=== PATIENT | female | born 1995 | race Hispanic/Latino ===

== ENCOUNTER 2017-03-27 09:33 | Observation (INO) | payer BC ==
[~2017-03-27] VITALS: Ht 162.6 cm; Wt 70.3 kg
[2017-03-27 09:55] LABS: BASOPHILS % (AUTO) 0.3 % (0.0-5.0); EOSINOPHILS % (AUTO) 0.1 % (0.0-8.0); HEMATOCRIT 41.4 % (36-48); LYMPHOCYTES % (AUTO) 17.1 % (21.0-51.0); MEAN CORPUSCULAR HEMOGLOBIN 27.9 pg (27.0-33.0); MEAN CORPUSCULAR HGB CONC 32.5 g/dL (32.0-36.0); MEAN CORPUSCULAR VOLUME 85.7 fL (79-99); MONOCYTES % (AUTO) 7.5 % (3.0-13.0); PLATELET COUNT (AUTO) 348 K/uL (130-400); RED BLOOD CELL COUNT(AUTO) 4.83 MIL/uL (4.00-5.50); RED CELL DISTRIBUTION WIDTH 16.1 % (11.0-15.5); WHITE BLOOD COUNT (AUTO) 12.8 K/uL (4.8-10.8)
[2017-03-27 10:06] LABS: APPEARANCE,URINE Clear (CLEAR); BILIRUBIN,URINE Negative (NEGATIVE); COLOR,URINE Yellow (YELLOW); GLUCOSE, URINE (UA) Negative (NEGATIVE); KETONES,URINE Trace mg/dL (NEGATIVE); LEUKOCYTE ESTERASE ,URINE Small (NEGATIVE); NITRATE,URINE Negative (NEGATIVE); OCCULT BLOOD,URINE Moderate (NEGATIVE); PROTEIN,URINE Negative (NEGATIVE)
[2017-03-27 10:08] LABS: HCG,QUAL RESULT NEGATIVE (NEGATIVE)
[2017-03-27 10:10] LABS: CREATININE 0.7 mg/dL (0.5-1.5); POTASSIUM 3.5 mmol/L (3.5-5.1)
[2017-03-27] MEDS ORDERED: KETOROLAC TROMETHAMINE 30MG/ML ONE (10:10)
[2017-03-27 10:14] LABS: ALBUMIN 3.9 g/dL (3.5-5.0); BILIRUBIN,TOTAL 0.2 mg/dL (0.2-1.0); TOTAL PROTEIN, SERUM 8.2 g/dL (6.0-8.3)
[2017-03-27 10:32] LABS: BACTERIA,URINE Few /HPF (None Seen); MUCUS,URINE Moderate LPF (None Seen)
[2017-03-27] MEDS ORDERED: HYDROMORPHONE HCL 0.5 MG/0.5 ML ML ONE ×2 (10:51→11:20)
[2017-03-27] MEDS ORDERED: ONDANSETRON HCL 4 MG/2 ML VIAL ONE ×2 (10:51→13:42)
[2017-03-27] MEDS ORDERED: LEVOFLOXACIN 500 MG/D5W 100 ML 100 ML ONE (11:11)
[2017-03-27] MEDS ORDERED: METRONIDAZOLE 500MG/100ML BAG 100 ML ONE (11:12)
[2017-03-27] MEDS ORDERED: MEPERIDINE-PF 25 MG/ML SYG ONE (13:33)
[2017-03-27] MEDS ORDERED: LACTATED RINGERS 1000ML 1,000 ML IV ONE (13:34)
[2017-03-27 17:07] VITALS: BP 125/74
[2017-03-27] MEDS ORDERED: MEPERIDINE HCL/PF 25 MG/0.5 ML AMPUL IVP PRN (17:30)
[2017-03-27] MEDS ORDERED: ONDANSETRON HCL 4 MG/2 ML VIAL IVP PRN ×2 (17:30→18:30)
[2017-03-27] MEDS: LACTATED RINGERS 1000ML 1,000 ML IV SCH (18:48)
[2017-03-27 19:14] VITALS: BP 114/70
[2017-03-27] MEDS ORDERED: FLU VACC QS2017-18 36MOS UP/PF 60 MCG/0.5 ML ML IM ONE (21:00)
[2017-03-27] MEDS ORDERED: MEPERIDINE-PF 50 MG/ML SYG ONE (21:21)
[2017-03-27] MEDS ORDERED: SODIUM CHLORIDE 0.9% 10 ML VIAL ONE (21:22)
[2017-03-27] MEDS: UNASYN 3GM+NS 100ML 100 ML IV SCH (21:25)
[2017-03-27] MEDS ORDERED: POTASSIUM CHLORIDE 20 MEQ ERTAB PO PRN (21:30)
[2017-03-27] MEDS ORDERED: POTASSIUM CHLORIDE 10% ELIXIR 20 MEQ/15 ML UDCUP PO PRN (21:30)
[2017-03-27] MEDS ORDERED: LIDOCAINE HCL-MPF 1% 2ML VIAL IVP PRN (21:30)
[2017-03-27] MEDS ORDERED: KETOROLAC TROMETHAMINE 30MG/ML IV PRN (21:30)
[2017-03-27] MEDS: POTASSIUM CHLORIDE 20MEQ/100ML 100 ML IV PRN (22:58)
[2017-03-27 23:55] VITALS: BP 109/70
[2017-03-28] VITALS (20 sets, daily range): BP systolic 97–134; BP diastolic 48–94
[2017-03-28] MEDS: LACTATED RINGERS 1000ML 1,000 ML IV SCH ×3 (01:01→16:45)
[2017-03-28] MEDS: UNASYN 3GM+NS 100ML 100 ML IV SCH ×3 (03:29→15:50)
[2017-03-28 04:14] LABS: HEMATOCRIT 36.4 % (36-48); MEAN CORPUSCULAR HEMOGLOBIN 28.2 pg (27.0-33.0); MEAN CORPUSCULAR VOLUME 85.4 fL (79-99); PLATELET COUNT (AUTO) 284 K/uL (130-400); RED BLOOD CELL COUNT(AUTO) 4.26 MIL/uL (4.00-5.50); RED CELL DISTRIBUTION WIDTH 16.2 % (11.0-15.5); WHITE BLOOD COUNT (AUTO) 7.9 K/uL (4.8-10.8)
[2017-03-28 04:30] LABS: INR 1.01 (0.85-1.15); PROTHROMBIN TIME 10.6 SEC (9.6-11.6)
[2017-03-28 04:33] LABS: ALBUMIN 3.3 g/dL (3.5-5.0); BILIRUBIN,TOTAL 0.8 mg/dL (0.2-1.0); CREATININE 0.8 mg/dL (0.5-1.5); POTASSIUM 3.6 mmol/L (3.5-5.1)
[2017-03-28] MEDS: POTASSIUM CHLORIDE 20MEQ/100ML 100 ML IV PRN (05:09)
[2017-03-28] MEDS: FAMOTIDINE/PF 20 MG/2 ML VIAL IV SCH ×2 (09:06→22:12)
[2017-03-28] MEDS ORDERED: SUCR1TAB28 PO (12:37)
[2017-03-28] MEDS ORDERED: ISOVUE-370 50ML VIAL IV ONE (17:37)
[2017-03-28] MEDS ORDERED: BUPIVACAINE/PF 0.5% 30ML VIAL ONE (17:54)
[2017-03-28] MEDS ORDERED: ONDANSETRON HCL 4 MG/2 ML VIAL ONE (17:58)
[2017-03-28] MEDS ORDERED: LIDOCAINE PF 2% 5ML ABBOJECT ONE (17:58)
[2017-03-28] MEDS ORDERED: GLYCOPYRROLATE 0.2 MG/ML 5 ML VIAL ONE ×2 (17:58→18:31)
[2017-03-28] MEDS ORDERED: DEXAMETHASONE SOD PHOSPHATE 10MG/ML 1ML VIAL ONE (17:58)
[2017-03-28] MEDS ORDERED: SUCCINYLCHOLINE 200MG/10ML SYR ONE (17:58)
[2017-03-28] MEDS ORDERED: MIDAZOLAM HCL 1 MG/ML 2ML VIAL ONE (18:01)
[2017-03-28] MEDS ORDERED: PROPOFOL 10 MG/ML 20ML VIAL IV ONE (18:01)
[2017-03-28] MEDS ORDERED: FENTANYL CITRATE PF 50 MCG/1 ML 2ML VIAL ONE ×4 (18:01→19:11)
[2017-03-28] MEDS ORDERED: PHENYLEPHRINE HCL 10 MG/ML 1ML VIAL IV ONE (18:31)
[2017-03-28] MEDS ORDERED: OCTYL 2-CYANOACRYLATE 1 EACH TP ONE (19:35)
[2017-03-28] MEDS ORDERED: RACEPINEPHRINE HCL 2.25% 0.5 ML NEB SOLN ONE (19:55)
[2017-03-28] MEDS ORDERED: TRAMADOL /APAP 37.5MG/325MG TAB PO PRN ×2 (22:15)
[2017-03-28] MEDS ORDERED: MEPERIDINE-PF 25 MG/ML SYG IVP PRN (22:15)
[2017-03-28] MEDS ORDERED: ACETAMINOPHEN 325 MG TAB PO PRN (22:15)
[2017-03-28] MEDS ORDERED: LACTATED RINGERS 1000ML 1,000 ML IV SCH (22:15)
[2017-03-29] MEDS: LACTATED RINGERS 1000ML 1,000 ML IV SCH (02:09)
[2017-03-29 03:05] VITALS: BP 110/66
[2017-03-29 07:40] VITALS: BP 115/75
[2017-03-29 08:36] LABS: HEPATITIS A ANTIBODY IGM Negative (Negative); HEPATITIS B CORE IGM Negative (Negative); HEPATITIS Bs ANTIGEN SCREEN P Negative (Negative)
[2017-03-29] MEDS: FAMOTIDINE/PF 20 MG/2 ML VIAL IV SCH (09:00)
[2017-03-29 11:23] VITALS: BP 107/66
== END 2017-03-29 12:50 | disposition home or self-care (01) ==
LOC: EDH 09:33 → EDHIP 16:08 → WSH 17:00
PROVIDERS: ADMIT Surgery; ATTEND Surgery
DX: K80.00 Calculus of gallbladder with acute cholecystitis without obstruction (principal); K21.9 Gastro-esophageal reflux disease without esophagitis; N39.0 Urinary tract infection, site not specified; F17.210 Nicotine dependence, cigarettes, uncomplicated; F12.90 Cannabis use, unspecified, uncomplicated; F10.10 Alcohol abuse, uncomplicated; Z82.3 Family history of stroke; Z83.3 Family history of diabetes mellitus; Z82.49 Family history of ischemic heart disease and other diseases of the circulatory system
CPT/HCPCS: 36415 ×2; 47563; 71045; 74300; 76705; 80053 ×2; 80074; 81001; 81025; 83690; 84132; 85025; 85027; 85610; 88304; 94640; 96365; 96366; 96375; 96376; 99285; A4649 ×3; C1758; C1769 ×3; G0378 ×45; J0295 ×2; J0330; J1100; J1170 ×2; J1885 ×2; J1956; J2001; J2175 ×2; J2250; J2370; J2405 ×3; J2704; J3010 ×4; J3480 ×2; J3490 ×6; J7030; J7120 ×3; Q9967